=== PATIENT | female | born 1995 | race Caucasian/White ===

== ENCOUNTER → 2017-08-16 18:11 | Outpatient (CLI) | payer OTHER, SELFPAY ==
[2017-08-16 18:18] LABS: Adenovirus F 40/41, stool Not Detected (NotDetected); Astrovirus Not Detected (NotDetected); Campylobacter Not Detected (NotDetected); Clostridium Difficile A/B, PCR Not Detected (NotDetected); Cryptosporidium Not Detected (NotDetected); Cyclospora Cayetanesis Not Detected (NotDetected); Entamoeba histolytica Not Detected (NotDetected); Enteroaggregative E coli Not Detected (NotDetected); Enteropathogenic E coli Not Detected (NotDetected); Enterotoxigenic E coli Not Detected (NotDetected); Giardia lamblia Not Detected (NotDetected); Norovirus Not Detected (NotDetected); Plesimonas Shigalloides, PCR Not Detected (NotDetected); Rotavirus A Not Detected (NotDetected); Salmonella, PCR Not Detected (NotDetected); Sapovirus Not Detected (NotDetected); Shiga-like toxin E coli Not Detected (NotDetected); Shigella Enterovasive E coli Not Detected (NotDetected); Vibrio Cholerae Not Detected (NotDetected); Vibrio, PCR Not Detected (NotDetected); Yersinia Entercolitica, PCR Not Detected (NotDetected)
== END ==
PROVIDERS: Visit Provider Physician Assistant
DX: R19.7 Diarrhea, unspecified (principal)
CPT/HCPCS: 87507

== ENCOUNTER 2020-05-25 10:17 | Emergency (ER) | payer OTHER, SELFPAY ==
[2020-05-25 10:25] VITALS: BP 113/74; PULSE 69; RESP 20; TEMP 36.2; O2SAT 97; BMI 24.2
--- NOTE | 2020-05-25 10:57 | HMH.EDUTC ---
[facility] [place] Clinical Impression: Exposure to COVID-19 virus, Viral syndrome Disposition: Home, Self-Care Condition on Discharge: Good Instructions: DI for COVID-19 (Suspected or Confirmed ), Preventing the Spread of Coronavirus Discharge Instructions Additional Instructions: Drink plenty of fluids. Take tylenol for pain or fever. Return if you begin to have difficulty breathing. Follow up with your regular doctor. GO TO THE ER FOR ANY WORSENING SYMPTOMS Referrals: Heath Yu MD [Primary Care Provider] - Time of Disposition: 10:59 Medical Decision Making - Medical Records Medical records reviewed: No: I reviewed the patient's medical records. - Tate Inquiry Pt receiving controlled substance: No Vital Signs: 05/25/20 10:25 05/25/20 11:00 Temperature 97.2 F L 97.2 F L Temperature Source Temporal Artery Scan Pulse Rate 69 Pulse Rate [Right Brachial] 69 Respiratory Rate 20 20 Blood Pressure 113/74 Blood Pressure [Right Arm] 113/74 Blood Pressure Mean [Right Arm] 87 Blood Pressure Source [Right Arm] Automatic Cuff Blood Pressure Position [Right Arm] Sitting 02 Sat by Pulse Oximetry 97 Oxygen Delivery Method Room Air Orders (Tests/Meds): ORDERS Category Date Time Status Covid-19 Nasal PCR Sendout P&C Routine Lab 05/25/20 10:20 [place]dered [facility] [place] - General Stated complaint: Covid Test Time Seen by Provider: 05/25/20 10:58 Mode of Arrival: Ambulatory Source of Information: Patient Limitations: No Limitations Description of Symptoms (Recalled from Triage Doc. by RN): COVID TEST D/T EXPOSURE. C/O HEADACHE AND NASAL CONGESTION HEENT Symptoms (Recalled from RN notes): No Resp Symptoms (Recalled from RN notes): No Skin Symptoms (Recalled from RN notes): No MS Symptoms (Recalled from RN notes): No Functional Status (Recalled from RN notes): WNL - History of Present Illness Provider Complaint: She states that she was exposed to covid-19 last week. She states that over the past 2 days she has had sinus congestion and a headache. - Related Data Allergies Allergy/AdvReac Type Severity Reaction Status Date / Time No Known Allergies Allergy Verified 05/25/20 10:44 - Worker's Comp Is this a Worker's Comp case?: No [facility] History - Hepatitis A Screen Drug use history?: No High risk sexual behaviors?: No History of sexually transmitted infection?: No Currently employed?: No Childcare worker?: No Do you have indoor plumbing?: Yes Do you have electricity?: Yes Attestation statement:: This patient has been screened for Hepatitis A risk factors. I have reviewed the patient's past medical history: Yes Laterality Cases: Bilateral: Myringotomy (Ear Tubes) - Social History Alcohol Intake: never Occupational Status: other ROS Obtained: Yes All systems reviewed & no additional complaints - Constitutional Constitutional: Reports system reviewed and no additional complaints, except as docu - Eyes Eyes: Reports system reviewed and no additional complaints, except as docu - ENT Ears, Nose, Mouth, and Throat: Reports as per HPI - Cardiovascular Cardiovascular: Reports system reviewed and no additional complaints, except as docu - Respiratory Respiratory: Reports system reviewed and no additional complaints, except as docu, Denies dyspnea, Denies stridor, Denies wheezing Physical Exam - General General appearance: alert, in no apparent distress - Head Head exam: atraumatic, normocephalic, normal inspection - Eye Eye exam: Present: normal appearance, PERRL, EOMI - ENT ENT exam: Present: normal exam, normal oropharynx, mucous membranes moist, TM's normal bilaterally, normal external ear exam - Neck Neck exam: Present: normal inspection, full ROM, trachea midline. Absent: meningismus, lymphadenopathy - Chest Chest inspection: Present: normal inspection, symmetric chest wall rise. Absent: tenderness - Respiratory Respiratory exam: Pres
[2020-05-25 11:00] VITALS: BP 113/74; PULSE 69; RESP 20; TEMP 36.2; O2SAT 97
[2020-05-26 11:43] LABS: Covid-19 Nasal PCR Sendout P&C Negative
== END 2020-05-25 11:05 | disposition home or self-care (01) ==
PROVIDERS: Emergency Provider Nurse Practitioner Family; PCP Family Medicine
DX: Z20.822 Contact with and (suspected) exposure to COVID-19 (principal); B34.9 Viral infection, unspecified
CPT/HCPCS: 99202; G0463; U0004

== ENCOUNTER 2021-10-27 11:42 | Emergency (ER) | payer BC, SELFPAY ==
[2021-10-27 12:15] VITALS: BP 111/73; PULSE 54; RESP 16; TEMP 37; O2SAT 100; BMI 22.6
--- NOTE | 2021-10-27 12:57 | HMH.EDUTC ---
[facility] [place] Disposition Clinical Impression: Exposure to COVID-19 virus Disposition: Home, Self-Care Condition on Discharge: Good Instructions: DI for COVID-19 (Suspected or Confirmed ), Preventing the Spread of Coronavirus Discharge Instructions Additional Instructions: *Monitor Temp, Over the counter Motrin or Tylenol as directed/as needed Tylenol every 4 hours and Motrin every 6 hours (as long as your family doctor has told you that you can take it) for fever or pain. and straight to ER if unable to lower temp less than 101.0 after medication given Follow up IMMEDIATELY for new or worsening symptoms or no Noticeable improvement over the next 48-72 hours. 911 for difficulty breathing or swallowing You were tested for today for COVID19 your test result should be back in the next 24-48 hours, you may Check your results on the [facility] [employer] health portal Make sure to take your Vitamins Vit. C Vit D and Zinc if you can take them Referrals: Heath Yu MD [Primary Care Provider] - As needed Forms: Work/School Release Medical Decision Making - Tate Inquiry Pt receiving controlled substance: No Tate was queried for this patient: No Vital Signs: 10/27/21 12:15 Temperature 98.6 F Temperature Source Oral Pulse Rate [Right Brachial] 54 L Respiratory Rate 16 Blood Pressure [Right Arm] 111/73 Blood Pressure Mean [Right Arm] 85 Blood Pressure Source [Right Arm] Automatic Cuff Blood Pressure Position [Right Arm] Sitting 02 Sat by Pulse Oximetry 100 Oxygen Delivery Method Room Air [facility] [place] HPI - General Stated complaint: covid exposure, sore throat Time Seen by Provider: 10/27/21 12:57 Mode of Arrival: Ambulatory Source of Information: Patient Limitations: No Limitations Description of Symptoms (Recalled from Triage Doc. by RN): COVID TEST D/T EXPOSURE HEENT Symptoms (Recalled from RN notes): No Resp Symptoms (Recalled from RN notes): No Skin Symptoms (Recalled from RN notes): No MS Symptoms (Recalled from RN notes): No Functional Status (Recalled from RN notes): WNL - History of Present Illness Provider Complaint: Patient states that she was recently exposed to someone that is positive for COVID States that she has been feeling fatigued, body aches, chills and scratchy thorat so she came in to get checked for COVID - Related Data Allergies Allergy/AdvReac Type Severity Reaction Status Date / Time No Known Allergies Allergy Verified 05/25/20 10:44 - Worker's Comp Is this a Worker's Comp case?: No H History - Hepatitis A Screen Attestation statement:: This patient has been screened for Hepatitis A risk factors. I have reviewed the patient's past medical history: Yes Laterality Cases: Bilateral: Myringotomy (Ear Tubes) - Social History Alcohol Intake: never Occupational Status: other ROS Obtained: Yes All systems reviewed & no additional complaints, Yes Systems reviewed as appropriate & no additional complaints - Constitutional Constitutional: Reports system reviewed and no additional complaints, except as docu, Reports body ache, Reports chills, Reports fatigue - ENT Ears, Nose, Mouth, and Throat: Reports system reviewed and no additional complaints, except as docu, Reports sore throat - Cardiovascular Cardiovascular: Reports system reviewed and no additional complaints, except as docu - Respiratory Respiratory: Reports system reviewed and no additional complaints, except as docu - Gastrointestinal Gastrointestingal: Reports: system reviewed and no additional complaints, except as docu Physical Exam - General General appearance: alert, in no apparent distress - Expanded ENT Exam Nose exam: Absent: sinus tenderness Throat exam: Present: other (Mild pharyngeal erythema noted) - Respiratory Respiratory exam: Present: normal lung sounds bilaterally. Absent: respiratory distress - Cardiovascular Cardiovascular exam: Present: regular rate, normal rhythm. Absent: JVD - Abdom
[2021-10-27 13:05] VITALS: BP 111/73; PULSE 54; RESP 16; TEMP 37; O2SAT 100
== END 2021-10-27 13:10 | disposition home or self-care (01) ==
PROVIDERS: Emergency Provider Nurse Practitioner; PCP Family Medicine
DX: Z20.822 Contact with and (suspected) exposure to COVID-19 (principal); J02.9 Acute pharyngitis, unspecified
CPT/HCPCS: 99212; C9803; G0463; U0003; U0005

== ENCOUNTER → 2022-04-19 11:36 | Outpatient (CLI) | payer BC, SELFPAY ==
--- NOTE | 2022-04-19 11:43 | US_ITS ---
FINAL REPORT CLINICAL HISTORY: ABDOMINAL PAIN FINDINGS: Transvaginal sonographic images of the pelvis were obtained. The uterus measures 7.3 x 5.6 x 4.2 cm. The endometrium measures 9 mm, which is within normal limits. No uterine mass is identified. The right ovary measures 3.5 cm in length and left ovary measures 4.4 cm in length. Normal blood flow seen to the ovaries. Small follicles/cysts are present. No dominant mass or cyst is seen. There is a small amount of 3 fluid which may be physiological or reactive. IMPRESSION: Small follicles/cysts in the ovaries. Small amount of free fluid, physiologic or reactive. Reviewed, Interpreted and Dictated by Salvador Yeager III, MD Transcribed by Daysi Stewart Authenticated and [facility]
== END ==
PROVIDERS: PCP Family Medicine; Visit Provider Family Medicine
DX: R10.32 Left lower quadrant pain (principal)
CPT/HCPCS: 76830

== ENCOUNTER 2022-04-27 17:41 | Emergency (ER) | payer BC, SELFPAY ==
[2022-04-27 18:10] VITALS: BP 118/70; PULSE 62; RESP 18; TEMP 37.1; O2SAT 98; BMI 23.3
[2022-04-27 18:21] LABS: UTC Strep Screen (Rapid) Negative (Negative)
--- NOTE | 2022-04-27 18:55 | EXP.UTC ---
Discharge Plan Disposition Patient Disposition: Home, Self-Care Condition: Good Prescriptions Prescriptions: New azithromycin [Zithromax Z-Jerry] 250 mg tablet See Rx Instructions .ROUTE .COMPLEX 5 Days Qty: 6 0RF Rx Instructions: For 250 mg dose pack: take 500 mg today (day 1), then 250 mg for 4 days (days 2-5) Referrals Follow up/Referrals: Heath Yu MD [Primary Care Provider] - See instructions Activity Restrictions/Add. Instructions Additional Instructions/Restrictions: *Monitor Temp, Over the counter Motrin or Tylenol as directed/as needed Tylenol every 4 hours and Motrin every 6 hours (as long as your family doctor has told you that you can take it) for fever or pain. and straight to ER if unable to lower temp less than 101.0 after medication given *Warm salt water gargles may help to soothe the throat *Throat Lozenges? *Warm fluids like tea with honey may help to soothe the throat? *Sleep elevated *Humidifier/Vaporizer Your throat swab was sent for culture. Those results are typically sent to your primary care. Be sure to follow up in 2-3 days with your family doctor/primary care physician if no improvement so they can review those result and treat if necessary. If you don?t have a primary care doctor, I recommend you get one but in the mean time, you will have to return to a walk in clinic Follow up IMMEDIATELY for new or worsening symptoms or no Noticeable improvement over the next 48-72 hours. 911 for difficulty breathing or swallowing Clinical Impressions Clinical Impression: Pharyngitis Instructions Patient Instructions: DI for Pharyngitis/Tonsillopharyngitis -- Adult Discharge ED Provider: Tamara Muñiz [facility] General Stated complaint: sore throat Mode of Arrival: Ambulatory Source of Information: Patient Limitations: No Limitations Time Seen by Provider: 04/27/22 18:55 Description of Symptoms (Recalled from Triage Doc. by RN): PATIENT C/O SORE THROAT, HEADACHE AND FATIGUE. REPORTS RECENT EXPOSURE TO STREP HEENT Symptoms (Recalled from RN notes): Yes Resp Symptoms (Recalled from RN notes): No Skin Symptoms (Recalled from RN notes): No MS Symptoms (Recalled from RN notes): No Functional Status (Recalled from RN notes): WNL History of Present Illness Provider Complaint: Patient state that she was recently around her mother that has strep throat States that she is having sore throat headache and chills like she gets at times with strep throat so today when her throat was worse she came in Related Data Previous Rx's Medication Instructions Recorded azithromycin 250 mg tablet See Rx Instructions PO .COMPLEX 5 04/27/22 (Zithromax Z-Jerry) days #6 tabs Allergies Allergy/AdvReac Type Severity Reaction Status Date / Time No Known Allergies Allergy Verified 05/25/20 10:44 Worker's Comp Is this a Worker's Comp case?: No [facility] Disclaimer: The information contained in this section may have been updated after the patient was seen, as this information can be updated by other users. Medical History (Updated 04/27/22 @ 18:59 by Tamara Muñiz APRN) Depression Urinary tract infection Surgical History (Updated 04/27/22 @ 18:28 by Cailin Frost RN) History of section History of tympanostomy tube placement Social History (Updated 04/27/22 @ 18:28 by Cailin Frost RN) Smoking Status: Unknown if ever smoked alcohol intake: never current occupational status: other Travel in the last 8 weeks: None ROS Obtained: Yes All systems reviewed & no additional complaints except as documented and Yes Systems reviewed as appropriate & no additional complaints except as documented Constitutional Constitutional: Reports system reviewed and no additional complaints, except as documented, Reports as per HPI, Reports chills and Reports headache(s) ENT Ears, Nose, Mouth, and Throat: Reports system reviewed and no additional compla
[2022-04-27 19:07] VITALS: BP 118/70; PULSE 62; RESP 18; TEMP 37.1; O2SAT 98
== END 2022-04-27 19:44 | disposition home or self-care (01) ==
PROVIDERS: Emergency Provider Nurse Practitioner; PCP Family Medicine
DX: J02.9 Acute pharyngitis, unspecified (principal)
CPT/HCPCS: 87880; 99212; G0463

== ENCOUNTER 2022-05-02 22:07 | Emergency (ER) | payer BC, SELFPAY ==
[2022-05-02 22:31] VITALS: BMI 24.3
--- NOTE | 2022-05-02 22:37 | XR_ITS ---
PROCEDURE INFORMATION: Exam: XR Chest Exam date and time: 05/02/2022 10:39 PM Age: 27 years old Clinical indication: Shortness of breath; Patient HX: PT states she experiences intermittent SOA. However, today was worse than usual; Additional info: SOB TECHNIQUE: Imaging protocol: Radiologic exam of the chest. Views: 2 views. COMPARISON: No relevant prior studies available. FINDINGS: Lungs: Unremarkable. No consolidation. Pleural spaces: Unremarkable. No pleural effusion. No pneumothorax. Heart/Mediastinum: Unremarkable. No cardiomegaly. Bones/joints: Unremarkable. IMPRESSION: No acute findings.
--- NOTE | 2022-05-02 22:37 | ECG_ITS ---
APPROVED REPORT Exam: Resting ECG HR:46 bpm ECG Measurements Heart Rate 46 AXES FL 186 P 70 QRSd 88 QRS 76 QT 447 T 65 QTc 408 Conclusion SINUS BRADYCARDIA BORDERLINE ECG UNCONFIRMED REPORT Electronically signed by : Mulugeta Cintron MD 05/04/2022 08:13:25
[2022-05-02 22:42] LABS: Basophils # 0.1 K/mm3 (0-0.2); Basophils % 1.4 % (0.1-2.0); Eosinophils # 0.1 K/mm3 (0.0-0.4); Eosinophils % 2.1 % (0.1-12.0); Hematocrit 39.7 % (37.0-47.0); Hemoglobin 13.4 g/dL (12.2-16.2); Lymphocytes # 3.4 K/mm3 (0.7-4.5); Lymphocytes % 52.7 % (10-50); Mean Corpuscular HGB Conc 33.8 g/dL (31.8-35.4); Mean Corpuscular Hemoglobin 29.5 pg (27.0-31.2); Mean Corpuscular Volume 87.2 fl (81-99); Mean Platelet Volume 7.6 fl (7.4-10.4); Monocytes # 0.3 K/mm3 (0.1-1.0); Monocytes % 4.9 % (1.7-9.3); Neutrophils # 2.5 K/mm3 (1.8-7.8); Neutrophils % 39.1 % (37.0-80.0); Platelet Count 280 K/mm3 (142-424); Red Blood Count 4.56 M/mm3 (4.20-5.40); Red Cell Distribution Width 13.1 % (11.5-17.5); White Blood Count 6.5 K/mm3 (4.8-10.8)
[2022-05-02 22:50] LABS: Alanine Aminotransferase 14 U/L (12-78); Albumin Level 4.6 g/dl (3.5-5.0); Albumin/Globulin Ratio 1.7 (1.1-1.8); Alkaline Phosphatase 44 U/L (38-126); Anion Gap 13.5 mEq/L (5-15); Aspartate Amino Transferase 28 U/L (14-36); Bilirubin,Total 0.9 mg/dl (0.2-1.3); Blood Urea Nitrogen 18 mg/dl (7-17); Calcium 8.9 mg/dl (8.4-10.2); Carbon Dioxide 28 mmol/L (22.0-30.0); Chloride 100 mmol/L (98-107); Creatinine Clearance Estimated 103 mL/min (50-200); Estimated Glomerular Filt Rate 75 ml/min (>60); GFR (African American) 90 ML/MIN (>60); Globulin 2.7 g/dL (1.3-3.2); Glucose 90 mg/dl (74-100); Potassium 3.5 mmoL/L (3.5-5.1); Sodium 138 mmol/L (136-145); Total Protein,Serum 7.3 g/dl (6.3-8.2)
[2022-05-02 22:52] LABS: MANUAL DIFFERENTIAL MANUAL DIFFERENTIAL (MANUAL DIFF)
[2022-05-02 23:00] VITALS: BP 115/77; PULSE 41; RESP 9; O2SAT 100
[2022-05-02 23:04] LABS: Troponin I < 0.01 ng/ml (0.00-0.034)
[2022-05-02 23:05] VITALS: BP 132/95; PULSE 43; RESP 18; TEMP 36.7; O2SAT 100; BMI 24.3
--- NOTE | 2022-05-02 23:24 | HMH.EDSOB ---
Discharge Plan Disposition Patient Disposition: Home, Self-Care Chief Complaint: Shortness of Breath/Dyspnea Prescriptions Prescriptions: No Action azithromycin [Zithromax Z-Jerry] 250 mg tablet See Rx Instructions .ROUTE .COMPLEX Rx Instructions: For 250 mg dose pack: take 500 mg today (day 1), then 250 mg for 4 days (days 2-5) Referrals Follow up/Referrals: Heath Yu MD [Primary Care Provider] - See instructions Clinical Impressions Clinical Impression: Acute dyspnea, Bradycardia Instructions Patient Instructions: DI for Shortness of Breath Discharge ED Provider: Zuhair Jama Resp/SOB HPI General Chief Complaint: Shortness of Breath/Dyspnea Stated Complaint: SOB,Little chest pain possible reaction to Medicat Time Seen by Provider: 05/02/22 23:26 Mode of Arrival: Ambulatory Source of Information: Patient and Medical Record Limitations: No Limitations Description of Symptoms (Recalled from ER Triage Doc. by RN): Pt states that she was diagnosed with Strep throat 5 days ago and was prescribed a zpack. Pt reports a history of chronic bradycardia. Pt states that after exercising this morning she noticed heart palpatations and has been experiencing shortness of breath. She is fearful that this may be caused from the zpack. History of Present Illness just finished z jerry and has hx of bradycardia and has noted some sob and palpitation today - MD Complaint: shortness of breath Onset (ago): hour(s) Severity: moderate Consistency/Duration: intermittent Associated symptoms: denies other symptoms Related Data Home oxygen amount: none Home Medications Medication Instructions Recorded Confirmed azithromycin 250 mg tablet See Rx Instructions .Route 05/02/22 05/02/22 (Zithromax Z-Jerry) .COMPLEX strep throat Allergies Allergy/AdvReac Type Severity Reaction Status Date / Time No Known Allergies Allergy Verified 05/25/20 10:44 [facility] Disclaimer: The information contained in this section may have been updated after the patient was seen, as this information can be updated by other users. Medical History (Updated 05/02/22 @ 23:36 by Zuhair Jama MD) Depression Urinary tract infection Surgical History (Updated 04/27/22 @ 18:28 by Cailin Frost RN) History of section History of tympanostomy tube placement Social History (Updated 04/27/22 @ 18:28 by Cailin Frost RN) Smoking Status: Never smoker alcohol intake: never current occupational status: other Travel in the last 8 weeks: None ROS Obtained: Yes All systems reviewed & no additional complaints except as documented Physical Exam General General appearance: alert Head Head exam: atraumatic Eye Eye exam: Present PERRL and EOMI ENT ENT exam: Present mucous membranes moist Neck Neck exam: Present trachea midline Respiratory Respiratory exam: Present normal lung sounds bilaterally; Absent respiratory distress Cardiovascular Cardiovascular exam: Present bradycardia; Absent systolic murmur or clicks Abdominal Exam Abdominal exam: Present soft Extremities Exam Extremities exam: Present full ROM Neurological Exam Neurological exam: Present alert, oriented X3 and CN II-XII intact Psychiatric Psychiatric exam: Present normal affect Skin Skin exam: Absent rash Medical Decision Making Medical Records Medical records reviewed: Yes I reviewed the patient's medical records. Ttae Inquiry Pt receiving controlled substance: No Vital Signs: 05/02/22 23:05 05/02/22 23:00 Temperature 98.1 F Temperature Source Oral Pulse Rate 41 L Pulse Rate [Apical] 43 L Respiratory Rate 18 9 L Blood Pressure 115/77 Blood Pressure [Right Arm] 132/95 H Blood Pressure Mean [Right Arm] 107 Blood Pressure Source [Right Arm] Automatic Cuff Blood Pressure Position [Right Arm] Supine 02 Sat by Pulse Oximetry 100 100 Oxygen Delivery Method Room Air Lab Data Lab results reviewed: Yes I
[2022-05-02 23:30] VITALS: BP 124/83; PULSE 45; RESP 19; O2SAT 99
[2022-05-02 23:34] LABS: Eosinophils % 1 % (0-3); Lymphocytes % 65 % (10-50); Monocytes % 3 % (2-9); Neutrophils % 31 % (42-76); Platelet Estimate Normal; RBC Morphology Normal; Total Cells Counted 100
[2022-05-02 23:37] VITALS: BP 130/92; PULSE 43; RESP 18; TEMP 36.6; O2SAT 98
[2022-05-02 23:49] LABS: T4 (Thyroxine) 8.8 ug/dl (5.53-11.0)
[2022-05-03 00:03] LABS: Thyroid Stimulating Hormone 4.06 uIU/mL (0.465-4.68)
== END 2022-05-02 23:48 | disposition home or self-care (01) ==
PROVIDERS: Emergency Provider Emergency Medicine; PCP Family Medicine
DX: R00.1 Bradycardia, unspecified (principal); R06.00 Dyspnea, unspecified; R06.02 Shortness of breath; R00.2 Palpitations; F32.A Depression, unspecified; Z87.440 Personal history of urinary (tract) infections
CPT/HCPCS: 71046; 80053; 84436; 84443; 84484; 85007; 85025; 93005; 99285

== ENCOUNTER → 2022-05-12 11:48 | Outpatient (CLI) | payer BC, SELFPAY ==
--- NOTE | 2022-05-12 | CA_ITS ---
APPROVED REPORT EXAM: Comprehensive 2D, Doppler, and color-flow Echocardiogram [employer] Information Clerk: Chantal Lucas CRT Ht: 5 ft 7 in Wt: 153lbs BSA: 1.80 BP: 128/88 mmHg Indications: Chest Pain, Shortness of Breath, Palpitations, bradycardia 2D Dimensions LVOT 2.10 cm (M/F) 1.5-2.5 LA Volume 40.70 mL LA Volume Index 22.00 mL/m2 (M/F) 16-34 M-Mode Dimensions RVDd 2.76 cm (0.9-2.6) LA Diam 3.58 cm (1.9-4.0) LVDd 4.69 cm (3.5-5.7) Ao Diam 3.34 cm (2.0-3.7) LVDs 3.32 cm (3.5-5.7) IVSd 0.80 cm (0.6-1.1) PWd 0.64 cm (0.6-1.1) EF (Teich) 56.00% FS 29.20% EDV (Teich) 101.90 mL TAPSE 2.44 (<1.7) ESV (Teich) 44.80 mL LV Diastology E Decel Time 323.00 (160-240 msec) E/A Ratio 2.40 MED E' 13.50 (< 7 cm/sec) MED A' 7.40 cm/s E'/MED E' Ratio 9.36 (>14) LAT E' 17.50 (<10 cm/sec) LAT A' 10.80 cm/s E/LAT E' Ratio 7.22 (>14) Aortic Valve AO Peak GR. 10.70 mmHg Mitral Valve MV A Velocity 53.00 (40-130 cm/s) E/A Ratio 2.40 MV Decel. Time 323.00 (160-240 ms) Pulmonary Valve PV Peak Velocity 183.00 (50-150 cm/s) Tricuspid Valve TR P. Velocity 232.00 cm/s RAP Estimate 10.00 mmHg RVSP 31.50 mmHg Left Ventricle Left atrium is normal size, left ventricle is normal size preserved left ventricular systolic function, estimated ejection fraction 55% with no regional wall motion abnormality, diastolic parameters are within normal range. Right Ventricle Right atrium and right ventricle are normal size and contractility. Aortic Valve Aortic valve is grossly normal there is no aortic stenosis aortic insufficiency. Mitral Valve Mitral valve grossly normal, there is trace mitral regurgitation. Tricuspid Valve Tricuspid valve grossly normal, there is trace tricuspid regurgitation, tricuspid regurgitation jet velocity is inadequate for calculation of the right ventricular systolic pressure. Pulmonic Valve Pulmonic valve is poorly visualized. Great Vessels Aortic root is normal size. Inferior vena cava is normal size with normal inspiratory collapse. Pericardium No significant pericardial effusion noted. Conclusion 1. Normal left ventricular size preserved left ventricular systolic function, estimated ejection fraction 55% with no regional wall motion abnormality, diastolic parameters are within normal range. 2. Trace mitral and tricuspid regurgitation. 3. No significant pericardial effusion noted. 4. Inferior vena cava is normal size with normal inspiratory collapse. Electronically signed by : Walker Calvillo MD 05/12/2022 15:01:50
== END ==
PROVIDERS: PCP Family Medicine; Visit Provider Nurse Practitioner Family
DX: R00.1 Bradycardia, unspecified (principal)
CPT/HCPCS: 93270; 93306

== ENCOUNTER → 2022-11-14 08:30 | Outpatient (CLI) | payer BC, SELFPAY ==
[2022-11-14] VITALS (10 sets, daily range): BP systolic 97–127; BP diastolic 56–76; PULSE 48–58; RESP 18; TEMP 36.2; O2SAT 96–100; BMI 24.2
--- NOTE | 2022-11-14 08:35 | FL_ITS ---
FINAL REPORT CLINICAL HISTORY: vision changes new daily headaches .23 fluoro time FINDINGS: LUMBAR PUNCTURE AND FLUOROSCOPY HISTORY: Daily headaches with visual disturbances ATTENDING PHYSICIAN: Dr. Landaverde PHYSICIAN PROCUREMENT INTERNSHIP: George Fragoso PA-C PROCEDURE: After informed consent was obtained and timeout procedure performed, the patient was placed in the prone position in the fluoroscopic suite. The L3-L4 level of the lumbar spine was localized under fluoroscopic guidance and marked on the skin appropriately. The patient was then prepped and draped in the usual sterile fashion and the skin was anesthetized with 1% Lidocaine. A lumbar puncture was then performed under direct fluoroscopic guidance at the L3-L4 level using a 20-gauge 3 1/2'' needle. The patient was subsequently rolled into the left lateral decubitus position and opening pressure was measured at 11 cm of water. Approximately 12 ml of clear cerebrospinal fluid was removed and sent to the laboratory for studies. The patient tolerated the procedure well and there were no immediate complications. Fluoroscopy time: 0.23 minutes. Single radiograph was obtained. IMPRESSION: Technically successful lumbar puncture as above. Films reviewed , interpreted and dictated by Dr. Kitty Landaverde. Transcribed by George Fragoso PA-C. Reviewed, Interpreted and Dictated by Kitty Landaverde MD Transcribed by PIPE Shanks Authenticated and [facility]
[2022-11-15 09:18] LABS: Glucose,CSF 48 mg/dl (40-70)
[2022-11-15 09:38] LABS: Appearance,CSF Clear (Clear); Red Blood Cell,CSF 1 cells/uL (0); Volume,CSF 12.5 mL; White Blood Cell,CSF 2 cells/uL (0-5)
[2022-11-15 10:17] LABS: Mononuclear WBCs,CSF 0 %; Polynuclear WBCs,CSF 1 %
== END | disposition home or self-care (01) ==
PROVIDERS: PCP Family Medicine; Visit Provider Family Medicine
DX: G44.52 New daily persistent headache (NDPH) (principal); H53.9 Unspecified visual disturbance
CPT/HCPCS: 62270; 82945; 84155; 87070; 87205; 89051

== ENCOUNTER 2023-05-05 10:40 | Emergency (ER) | payer BC, SELFPAY ==
[2023-05-05 11:05] VITALS: BP 114/68; PULSE 56; RESP 20; TEMP 36.9; O2SAT 100; BMI 22.6
--- NOTE | 2023-05-05 11:18 | EXP.UTC ---
Discharge Plan Disposition Patient Disposition: Home, Self-Care Condition: Good Prescriptions Prescriptions: New cefdinir 300 mg capsule 300 mg PO BID Qty: 20 0RF Referrals Follow up/Referrals: Cherise Kaye PA [Primary Care Provider] - See instructions Activity Restrictions/Add. Instructions Additional Instructions/Restrictions: *Monitor Temp, Over the counter Motrin or Tylenol as directed/as needed Tylenol every 4 hours and Motrin every 6 hours (as long as your family doctor has told you that you can take it) for fever or pain. and straight to ER if unable to lower temp less than 101.0 after medication given *Warm salt water gargles may help to soothe the throat *Throat Lozenges? *Warm fluids like tea with honey may help to soothe the throat? *Sleep elevated *Humidifier/Vaporizer Your throat swab was sent for culture. Those results are typically sent to your primary care. Be sure to follow up in 2-3 days with your family doctor/primary care physician if no improvement so they can review those result and treat if necessary. If you don?t have a primary care doctor, I recommend you get one but in the mean time, you will have to return to a walk in clinic Follow up IMMEDIATELY for new or worsening symptoms or no Noticeable improvement over the next 48-72 hours. 911 for difficulty breathing or swallowing Clinical Impressions Clinical Impression: Pharyngitis Qualifiers: Pharyngitis/tonsillitis etiology: unspecified etiology Qualified Code(s): J02.9 - Acute pharyngitis, unspecified Instructions Patient Instructions: Cough, Sore Throat, Cefdinir Discharge ED Provider: Tamara Muñiz [facility] General Stated complaint: sore throat, cough, body aches Mode of Arrival: Ambulatory Source of Information: Patient Limitations: No Limitations Time Seen by Provider: 05/05/23 11:18 Description of Symptoms (Recalled from Triage Doc. by RN): PATIENT C/O COUGH WITH MUCOUS, SORE THROAT, AND SWOLLEN LYMPH NODES X 3 WEEKS HEENT Symptoms (Recalled from RN notes): Yes Resp Symptoms (Recalled from RN notes): Yes Skin Symptoms (Recalled from RN notes): No MS Symptoms (Recalled from RN notes): No Functional Status (Recalled from RN notes): WNL History of Present Illness Provider Complaint: Patient states that she has had a cough on and off for about 3 weeks that is productive at times, also had ear pain and pressure on and off for the last few days her throat has been hurting pretty bad and today her throat was still hurting and felt like her lymph nodes was swollen Related Data Previous Rx's Medication Instructions Recorded cefdinir 300 mg capsule 300 mg PO BID #20 caps 05/05/23 Allergies Allergy/AdvReac Type Severity Reaction Status Date / Time azithromycin Allergy Verified 05/05/23 11:18 latex AdvReac Mild Verified 11/14/22 08:57 Worker's Comp Is this a Worker's Comp case?: No [facility] Disclaimer: The information contained in this section may have been updated after the patient was seen, as this information can be updated by other users. Medical History (Updated 05/05/23 @ 11:32 by Tamara Muñiz APRN) Bradycardia Chest pain Depression Dizziness Dyspnea Palpitations Urinary tract infection Surgical History History of section History of tympanostomy tube placement Social History Smoking Status: Never smoker alcohol intake: never current occupational status: other Travel in the last 8 weeks: None ROS Obtained: Yes All systems reviewed & no additional complaints except as documented and Yes Systems reviewed as appropriate & no additional complaints except as documented Constitutional Constitutional: Reports system reviewed and no additional complaints, except as documented and Reports as per HPI ENT Ears, Nose, Mouth, and Throat: Reports system reviewed and no additional complaints, except as documented, Reports as per HPI, Reports otalgia (on and off) and Reports sore throat Cardiovascular Cardiovascular: Reports system reviewed and no additional complaints, except as documented and Reports as per HPI Respiratory Respiratory: Reports system reviewed and no additional complaints, except as documented, Reports as per HPI, Denies shortness of breath, Reports chest congestion and Reports cough Physical Exam General General appearance: alert and in no apparent distress ENT ENT exam: Present mucous membranes moist Expanded ENT Exam TM/Canal exam: Bilateral TM: bulging (mild redness on left) Throat exam: Present tonsillar erythema (patchy like area noted) Respiratory Respiratory exam: Present normal lung sounds bilaterally; Absent respiratory distress or wheezes Cardiovascular Cardiovascular exam: Present regular rate, normal rhythm and normal heart sounds Abdominal Exam Abdominal exam: Present soft and normal bowel sounds; Absent distention or tenderness Neurological Exam Neurological exam: Present alert, oriented X3 and normal gait Medical Decision Making Tate Inquiry Pt receiving controlled substance: No Tate was queried for this patient: No Vital Signs: 05/05/23 11:05 Temperature 98.5 F Temperature Source Oral Pulse Rate [Left Brachial] 56 L Respiratory Rate 20 Blood Pressure [Left Arm] 114/68 Blood Pressure Mean [Left Arm] 83 Blood Pressure Source [Left Arm] Automatic Cuff Blood Pressure Position [Left Arm] Sitting 02 Sat by Pulse Oximetry 100 Oxygen Delivery Method Room Air Lab Data Lab results reviewed: Yes I reviewed the patient's lab results. Medical Decision Narrative: Patient rapid strep test negative however gina noted, PND and patchy like area noted therefore will cover for strep throat medication discussed with pharmacy
[2023-05-05 11:20] VITALS: BP 114/68; PULSE 56; RESP 20; TEMP 36.9; O2SAT 100
[2023-05-05 11:23] LABS: UTC Strep Screen (Rapid) Negative (Negative)
== END 2023-05-05 11:42 | disposition home or self-care (01) ==
PROVIDERS: Emergency Provider Nurse Practitioner; PCP Physician Assistant
DX: J02.9 Acute pharyngitis, unspecified (principal); R05.8 Other specified cough; H92.03 Otalgia, bilateral; M79.18 Myalgia, other site
CPT/HCPCS: 87880; 99212; 99214; G0463

== ENCOUNTER 2023-09-21 20:05 | Emergency (ER) | payer BC, SELFPAY ==
[2023-09-21 20:06] VITALS: BP 136/91; PULSE 52; RESP 16; TEMP 36.7; O2SAT 100; BMI 23.3
--- NOTE | 2023-09-21 20:13 | ECG_ITS ---
APPROVED REPORT Exam: Resting ECG HR:47 bpm ECG Measurements Heart Rate 47 AXES VA 170 P 53 QRSd 81 QRS 44 QT 423 T 51 QTc 388 Conclusion SINUS BRADYCARDIA Electronically signed by : LAILA HENNESSY, 09/22/2023 01:26:06
[2023-09-21 21:03] LABS: Basophils # 0.1 K/mm3 (0-0.2); Basophils % 0.9 % (0.1-2.0); Eosinophils # 0.1 K/mm3 (0.0-0.4); Eosinophils % 1.4 % (0.1-12.0); Hematocrit 41.6 % (37.0-47.0); Hemoglobin 13.7 g/dL (12.2-16.2); Lymphocytes # 2.7 K/mm3 (0.7-4.5); Lymphocytes % 36.9 % (10-50); Mean Corpuscular Hemoglobin 29.8 pg (27.0-31.2); Mean Corpuscular Volume 90.3 fl (81-99); Mean Platelet Volume 7.8 fl (7.4-10.4); Monocytes # 0.3 K/mm3 (0.1-1.0); Monocytes % 4.4 % (1.7-9.3); Neutrophils # 4.1 K/mm3 (1.8-7.8); Neutrophils % 56.4 % (37.0-80.0); Platelet Count 238 K/mm3 (142-424); Red Blood Count 4.61 M/mm3 (4.20-5.40); Red Cell Distribution Width 14.4 % (11.5-17.5); White Blood Count 7.2 K/mm3 (4.8-10.8)
[2023-09-21 21:09] LABS: HCG Qualitative, Serum Negative (Negative)
[2023-09-21 21:17] LABS: Chloride 102 mmol/L (98-107); Sodium 137 mmol/L (136-145)
[2023-09-21 21:19] LABS: Alanine Aminotransferase 16 U/L (12-78); Blood Urea Nitrogen 17 mg/dl (7-17); Creatinine Clearance Estimated 96 mL/min (50-200); Estimated Glomerular Filt Rate 74 ml/min (>60); GFR (African American) 90 ML/MIN (>60)
[2023-09-21 21:20] LABS: Albumin Level 4.7 g/dl (3.5-5.0); Albumin/Globulin Ratio 1.6 (1.1-1.8); Alkaline Phosphatase 38 U/L (38-126); Aspartate Amino Transferase 34 U/L (14-36); Calcium 9.6 mg/dl (8.4-10.2); Carbon Dioxide 28 mmol/L (22.0-30.0); Globulin 2.9 g/dL (1.3-3.2); Glucose 90 mg/dl (74-100); Magnesium 1.9 mg/dl (1.6-2.3); Total Protein,Serum 7.6 g/dl (6.3-8.2)
[2023-09-21 21:30] VITALS: BP 137/79; PULSE 51; RESP 16; O2SAT 100
[2023-09-21 21:37] LABS: T4 (Thyroxine) 6.9 ug/dl (5.53-11.0)
[2023-09-21 21:51] LABS: Thyroid Stimulating Hormone 2.53 uIU/mL (0.465-4.68)
--- NOTE | 2023-09-21 21:53 | ECG_ITS ---
APPROVED REPORT Exam: Resting ECG HR:64 bpm ECG Measurements Heart Rate 64 AXES KS 168 P 54 QRSd 80 QRS 43 QT 402 T 49 QTc 412 Conclusion SINUS RHYTHM WITH OCCASIONAL ECTOPIC PREMATURE COMPLEXES BORDERLINE ECG Electronically signed by : LAILA HENNESSY, 09/22/2023 01:24:48
[2023-09-21 22:00] VITALS: BP 117/70; PULSE 51; RESP 15; O2SAT 100
[2023-09-21 22:30] VITALS: BP 123/73; PULSE 46; RESP 15; O2SAT 100
[2023-09-21 23:01] VITALS: BP 112/66; PULSE 45; RESP 13; O2SAT 100
[2023-09-21 23:42] VITALS: BP 116/78; PULSE 59; RESP 16; TEMP 36.6; O2SAT 98
--- NOTE | 2023-09-22 00:50 | ED_ITS ---
Discharge Plan Disposition Patient Disposition: Home, Self-Care Condition: Good Prescriptions Prescriptions: No Action cefdinir 300 mg capsule 300 mg PO BID Qty: 20 0RF Referrals Follow up/Referrals: Cherise Kaye PA [Primary Care Provider] - See instructions Nirmal Hein MD [Staff Physician] - See instructions Activity Restrictions/Add. Instructions Additional Instructions/Restrictions: You were evaluated in the emergency department today. Please follow-up closely with cardiology. Return to the emergency department for new or worsening symptoms. Clinical Impressions Clinical Impression: Palpitations, Bradycardia, sinus, Frequent PVCs Instructions Patient Instructions: Premature Ventricular Beats Discharge ED Provider: Parul Cavazos General Adult HPI General Chief complaint: Anxiety Stated complaint: Heart papitations Time Seen by Provider: 09/21/23 20:53 Mode of Arrival: Ambulatory Source of Information: Patient Limitations: No Limitations Description of Symptoms (Recalled from ER Triage Doc. by RN): Pt presents to ER with concerns of frequent heart palpitations (20 -30 per/hr) that are worse after standing. Pt had recent visit to PCP with labwork, told today k+ was 5.7 Pt denies any SOA, feels chest pressure no pain. Pt states she feels really anxious at this time. History of Present Illness HPI narrative: This patient is a 28-year-old female with a history of palpitations, sinus bradycardia, and previous evaluations for chest pains in the past presenting to the emergency department for evaluation with concern for frequent palpitations. She states that she can feel her heart flutter 20-30 times in an hour. It gets worse with standing. She saw her PCP and was told that her potassium was high in the past, so she should be evaluated to have her potassium rechecked, as this could cause dysrhythmias. She states that this has been making her feel very anxious. She denies any fevers, chills, cough, infectious symptoms, chest pain, shortness of breath, abdominal pain, vomiting, or other concerns. She just notes that the palpitations and heart fluttering are becoming much more frequent and persistent. Related Data Previous Rx's Medication Instructions Recorded cefdinir 300 mg capsule 300 mg PO BID #20 caps 05/05/23 Allergies Allergy/AdvReac Type Severity Reaction Status Date / Time azithromycin Allergy Verified 05/05/23 11:18 latex AdvReac Mild Verified 11/14/22 08:57 PFSH PFSH Disclaimer: The information contained in this section may have been updated after the patient was seen, as this information can be updated by other users. Medical History Bradycardia Dizziness Palpitations Dyspnea Chest pain Urinary tract infection Depression Surgical History History of tympanostomy tube placement History of section Social History Smoking Status: Never smoker alcohol intake: never current occupational status: other Travel in the last 8 weeks: None ROS Obtained: Yes All systems reviewed & no additional complaints except as documented Physical Exam General General appearance: alert and in no apparent distress Head Head exam: atraumatic and normocephalic Eye Eye exam: Present normal appearance, PERRL and EOMI ENT ENT exam: Present normal exam, normal oropharynx, mucous membranes moist and normal external ear exam Neck Neck exam: Present normal inspection, full ROM and trachea midline; Absent tenderness Chest Chest inspection: Present normal inspection and symmetric chest wall rise; Absent tenderness Respiratory Respiratory exam: Present normal lung sounds bilaterally; Absent respiratory distress, wheezes, stridor or accessory muscle use Cardiovascular Cardiovascular exam: Present bradycardia Abdominal Exam Abdominal exam: Present soft; Absent distention, tenderness or guarding Extremities Exam Extremities exam: Present normal inspection, full ROM and normal capillary refill; Absent tenderness or edema Back Exam Back exam: Present normal inspection and full ROM; Absent tenderness Neurological Exam Neurological exam: Present alert, oriented X3, CN II-XII intact and normal gait; Absent motor sensory deficit Psychiatric Psychiatric exam: Present normal affect and normal mood Skin Skin exam: Present warm and dry Medical Decision Making Medical Records Medical records reviewed: Yes I reviewed the patient's medical records. Tate Inquiry Pt receiving controlled substance: No Vital Signs: 09/21/23 20:06 09/21/23 21:30 09/21/23 22:00 Temperature 98.1 F Temperature Source Oral Pulse Rate 51 L 51 L Pulse Rate [Left] 52 L Respiratory Rate 16 16 15 Blood Pressure 137/79 117/70 Blood Pressure [Right Arm] 136/91 H Blood Pressure Mean 92 83 Blood Pressure Mean [Right Arm] 106 Blood Pressure Source Blood Pressure Source [Right Arm] Automatic Cuff Blood Pressure Position Blood Pressure Position [Right Arm] Sitting 02 Sat by Pulse Oximetry 100 100 100 Oxygen Delivery Method Room Air 09/21/23 22:30 09/21/23 23:01 09/21/23 23:42 Temperature 98 F Temperature Source Oral Pulse Rate 46 L 45 L 59 L Pulse Rate [Left] Respiratory Rate 15 13 16 Blood Pressure 123/73 112/66 116/78 Blood Pressure [Right Arm] Blood Pressure Mean 87 81 Blood Pressure Mean [Right Arm] Blood Pressure Source Automatic Cuff Blood Pressure Source [Right Arm] Blood Pressure Position Sitting Blood Pressure Position [Right Arm] 02 Sat by Pulse Oximetry 100 100 Oxygen Delivery Method Room Air Room Air Lab Data Lab results reviewed: Yes I reviewed the patient's lab results. Lab Results 09/21/23 20:20: WBC 7.2, RBC 4.61, Hgb 13.7, Hct 41.6, MCV 90.3, MCH 29.8, MCHC 33.0, RDW 14.4, Plt Count 238, MPV 7.8, Neut % (Auto) 56.4, Lymph % (Auto) 36.9, Alfalfa % (Auto) 4.4, Eos % (Auto) 1.4, Baso % (Auto) 0.9, Neut # (Auto) 4.1, Lymph # (Auto) 2.7, Alfalfa # (Auto) 0.3, Eos # (Auto) 0.1, Baso # (Auto) 0.1, Sodium 137, Potassium 4.0, Chloride 102, Carbon Dioxide 28, Anion Gap 11.0, BUN 17, Creatinine 0.90, Estimated Creat Clear 96, Estimated GFR 74, Est GFR ( Amer) 90, Glucose 90, Calcium 9.6, Magnesium 1.9, Total Bilirubin 1.0, AST 34, ALT 16, Alkaline Phosphatase 38, Total Protein 7.6, Albumin 4.7, Globulin 2.9, Albumin/Globulin Ratio 1.6, TSH 2.53, Thyroxine (T4) 6.9, Serum HCG, Qual Negative 09/21/23 20:20 09/21/23 20:20 Orders (Tests/Meds): ORDERS Category Date Time Status Complete Blood Count Auto Diff Stat Lab 09/21/23 20:20 Completed Comprehensive Metabolic Panel Stat Lab 09/21/23 20:20 Completed HCG Qualitative, Serum Stat Lab 05/24/24 20:20 Completed Magnesium Stat Lab 09/21/23 20:20 Completed T4 (Thyroxine) Stat Lab 09/21/23 20:20 Completed Thyroid Stimulating Hormone Stat Lab 09/21/23 20:20 Completed ECG Data Tracing #1: I reviewed this ECG and interpreted as documented below: Sinus bradycardia with a ventricular rate of [address] changes concerning for ischemia. Normal axis and intervals. ECG initial impression date: 09/22/23 ECG initial impression time: 20:18 Tracing #2: I reviewed this ECG and interpreted as documented below: Normal sinus rhythm with a ventricular rate of 64 bpm. 1 PVC noted. No acute ST changes concerning for ischemia. Normal axis and intervals. ECG initial impression date: 09/22/23 ECG initial impression time: 21:54 Medical Decision Narrative: In summary, this patient is a 28-year-old female presenting to the Emergency Department for evaluation of recurrent palpitations. Differential diagnoses considered include but are not limited to hypothyroidism, hyperthyroidism, potassium derangement, magnesium derangement, dysrhythmia. Ruling out the most morbid conditions drove assessment. I reviewed patient's past medical records and noted previous ECG with sinus bradycardia and eval for palpitations in the past. On exam, the patient is resting comfortably with reassuring vital signs on cardiac telemetry. Workup included CBC, CMP, TSH, T4, , magnesium, EKG. EKG x 2 obtained is reassuring. Patient did have a PVC noted on repeat EKG, but no sustained frequent PVCs, bigeminy, trigeminy, or any concerns like this. Labs are reassuring. Ultimately given reassuring workup and exam, I feel the patient is appropriate for discharge home with close follow-up with primary care as well as cardiology. I gave her instructions for this. Give her very strict return precautions and the patient was discharged after all questions were answered. Critical Care Critical Care Time Critical Care Time: No
== END 2023-09-21 23:46 | disposition home or self-care (01) ==
PROVIDERS: Emergency Provider Emergency Medicine; PCP Physician Assistant
DX: R00.2 Palpitations (principal); R00.1 Bradycardia, unspecified; I49.3 Ventricular premature depolarization
CPT/HCPCS: 80053; 83735; 84436; 84443; 84703; 85025; 93005; 99283

== ENCOUNTER 2023-09-26 07:58 | Outpatient (CLI) | payer BC, SELFPAY ==
--- NOTE | 2023-09-26 09:51 | CA_ITS ---
APPROVED REPORT EXAM: Limited 2D and color flow Echocardiogram Business Segment Manager: Luciat Montelongo RCS, RVS Ht: 5 ft 7 in Wt: 153lbs BSA: 1.80 BP: 128/88 mmHg Indications: Palpitations 2D Dimensions Left Atrium 3.48 cm M-Mode Dimensions RVDd 2.63 cm (0.9-2.6) LVDd 4.88 cm (3.5-5.7) Ao Diam 2.76 cm (2.0-3.7) LVDs 3.13 cm (3.5-5.7) IVSd 0.66 cm (0.6-1.1) PWd 0.75 cm (0.6-1.1) EF (Teich) 65.30% EPSs 0.60 cm FS 35.90% EDV (Teich) 111.70 mL ESV (Teich) 38.80 mL Other Information Study Quality: Fair Conclusion This is a limited study to evaluate for biventricular systolic size and function. Limited windows were obtained. The left ventricle is normal in size. There is normal LV wall thickness. No regional wall motion abnormalities are noted. LVEF is 55%. The right ventricle is mildly dilated. There is mild reduction in RV systolic function. There is no Doppler evidence of interatrial shunt. Mild TR is noted. In the setting of mild RV dysfunction and presence of palpitations, further evaluation with full TTE and bubble study are recommended to rule out interatrial shunt. Electronically signed by : Lisette Way MD 10/01/2023 12:10:11
[2023-09-26 10:33] LABS: Alanine Aminotransferase 13 U/L (12-78); Albumin Level 4.4 g/dl (3.5-5.0); Albumin/Globulin Ratio 1.7 (1.1-1.8); Alkaline Phosphatase 39 U/L (38-126); Anion Gap 11.4 mEq/L (5-15); Aspartate Amino Transferase 27 U/L (14-36); Bilirubin,Total 0.8 mg/dl (0.2-1.3); Blood Urea Nitrogen 16 mg/dl (7-17); Calcium 9.6 mg/dl (8.4-10.2); Carbon Dioxide 30 mmol/L (22.0-30.0); Chloride 102 mmol/L (98-107); Estimated Glomerular Filt Rate 85 ml/min (>60); GFR (African American) 103 ML/MIN (>60); Globulin 2.6 g/dL (1.3-3.2); Glucose 86 mg/dl (74-100); Potassium 5.4 mmoL/L (3.5-5.1); Sodium 138 mmol/L (136-145)
[2023-09-26 10:50] LABS: D-Dimer < 0.25 ug/mL (0.0-0.5)
[2023-09-26 10:58] LABS: Troponin I < 0.01 ng/ml (0.00-0.034)
== END 2023-09-26 23:59 | disposition home or self-care (01) ==
PROVIDERS: Physician Assistant; PCP Physician Assistant; Visit Provider Family Medicine
DX: R00.2 Palpitations (principal); R94.31 Abnormal electrocardiogram [ECG] [EKG]; E87.5 Hyperkalemia
CPT/HCPCS: 36415; 80053; 84484; 85378; 93225; 93227; 93308

== ENCOUNTER 2023-10-10 14:34 | Outpatient (CLI) | payer BC, SELFPAY ==
--- NOTE | 2023-10-10 14:34 | CA_ITS ---
APPROVED REPORT EXAM: Comprehensive 2D, Doppler, and color-flow Echocardiogram It Trainer: Chantal Lucas CRT Ht: 5 ft 7 in Wt: 153lbs BSA: 1.80 BP: 128/88 mmHg Indications: Palpitations Echo Enhancing Agent Indication: Rule out Shunt Agent(s) / Amount(s) Used: Agitated Saline 5 cc Comments: B/S ORDERED 2D Dimensions LA Volume 21.80 mL LA Volume Index 11.80 mL/m2 (M/F) 16-34 M-Mode Dimensions RVDd 2.80 cm (0.9-2.6) LA Diam 2.89 cm (1.9-4.0) LVDd 4.37 cm (3.5-5.7) LVDs 3.13 cm (3.5-5.7) IVSd 1.02 cm (0.6-1.1) PWd 0.98 cm (0.6-1.1) EF (Teich) 55.00% FS 28.40% EDV (Teich) 86.30 mL TAPSE 2.01 (<1.7) ESV (Teich) 38.80 mL LV Diastology MED A' 6.00 cm/s LAT A' 8.50 cm/s Aortic Valve AO Peak GR. 4.90 mmHg Pulmonary Valve PV Peak Velocity 149.0 (50-150 cm/s) Tricuspid Valve TR P. Velocity 210.00 cm/s RAP Estimate 10.00 mmHg RVSP 27.60 mmHg Left Ventricle The left ventricle is normal size. The left ventricular systolic function is normal. The left ventricular ejection fraction is within the normal range. There is normal left ventricular wall thickness. There is normal LV segmental wall motion. The left ventricular diastolic function is normal. LVEF is 55%. Right Ventricle The right ventricle is normal size. The right ventricular systolic function is normal. Atria The left atrium size is normal. The right atrium size is normal. There is no Doppler evidence of interatrial shunt. Saline bubble contrast intravenous injection does not demonstrate PFO. Aortic Valve The aortic valve is normal in structure. The aortic valve is trileaflet. There is no aortic valvular stenosis. No aortic regurgitation is present. Mitral Valve The mitral valve is normal in structure. No evidence of mitral valve stenosis. Trace mitral valve regurgitation noted. Tricuspid Valve The tricuspid valve leaflets are thin and pliable. Trace tricuspid regurgitation. There is insufficient TR jet to estimate RVSP. Pulmonic Valve The pulmonary valve is normal in structure. Trace pulmonic regurgitation. Great Vessels The aortic root is normal in size. The ascending aorta is normal in size. IVC is normal in size and collapses >50% with inspiration. Pericardium There is no pericardial effusion. Other Information Study Quality: Adequate Conclusion Normal biventricular size and function. No significant valvular stenosis or regurgitation. There is no Doppler evidence of interatrial shunt. Saline bubble contrast intravenous injection does not demonstrate PFO. Electronically signed by : Lisette Way MD 10/14/2023 17:35:40
== END 2023-10-10 23:59 | disposition home or self-care (01) ==
LOC: RT 14:34
PROVIDERS: PCP Physician Assistant; Visit Provider Physician Assistant
DX: I51.7 Cardiomegaly (principal); R93.1 Abnormal findings on diagnostic imaging of heart and coronary circulation; R94.31 Abnormal electrocardiogram [ECG] [EKG]; R00.1 Bradycardia, unspecified; R42 Dizziness and giddiness; R00.2 Palpitations; R06.09 Other forms of dyspnea; R07.9 Chest pain, unspecified; I49.3 Ventricular premature depolarization
CPT/HCPCS: 93306

== ENCOUNTER 2023-10-18 10:14 | Outpatient (CLI) | payer BC, SELFPAY ==
--- NOTE | 2023-10-18 10:15 | NM_ITS ---
FINAL REPORT CLINICAL HISTORY: abnl echo/rv dilation 11:00 am 34.4 mci DTPA inhaled 11:25 am 8.04 mci Maa injected into lt ant cxr done today COMPARISON: None FINDINGS: NUCLEAR MEDICINE VENTILATION AND PERFUSION IMAGING TECHNIQUE: V/Q scan is performed utilizing 34.4 mCi technetium 99 M DTPA aerosol and IV administration of 8.04 mCi technetium 99 M MAA. Images were obtained in AP, PA, lateral, and oblique projections. FINDINGS There is no evidence of segmental or subsegmental mismatch perfusion defects. IMPRESSION: Low probability for pulmonary embolus. Reviewed, Interpreted and Dictated by Heath Mann MD Transcribed by Louisa Juan Authenticated and [facility]
[2023-10-18] MEDS: ISOTOPE DTPA(AEROSOL);1 DOSE (UP TO 75 MCI) IV (11:00)
--- NOTE | 2023-10-18 11:34 | XR_ITS ---
FINAL REPORT CLINICAL HISTORY: SOA, RV enlargement COMPARISON: 05/03/2022 FINDINGS: 2 views of the chest were obtained . The heart is normal in size. The mediastinum is within normal limits. The lungs are clear. There is no pneumothorax. Osseous structures are unremarkable. IMPRESSION: No acute cardiopulmonary process. Reviewed, Interpreted and Dictated by Heath Mann MD Transcribed by Jennifer Vásquez Authenticated and [facility]
[2023-10-18] MEDS: ISOTOPE TC MAA;1 DOE (UP TO 45 MCI) 1 DOSE IV (12:14)
[2023-10-18] MEDS: SODIUM CHLORIDE 0.9% 10ML SYR (RAD ONLY) 10 ML IV (12:14)
== END 2023-10-18 23:59 | disposition home or self-care (01) ==
LOC: RAD 10:15
PROVIDERS: PCP Physician Assistant; Visit Provider Physician Assistant
DX: R00.2 Palpitations (principal); I49.3 Ventricular premature depolarization; R93.1 Abnormal findings on diagnostic imaging of heart and coronary circulation; R94.31 Abnormal electrocardiogram [ECG] [EKG]; R06.09 Other forms of dyspnea; R07.9 Chest pain, unspecified
CPT/HCPCS: 71046; 78582; A9540; A9567

== ENCOUNTER 2023-12-04 06:33 | Day surgery (SDC) | payer BC, SELFPAY ==
[2023-11-30 14:05] VITALS: BMI 23.3
[2023-12-04] MEDS: LACTATED RINGERS 1000ML 1,000 ML 100 ML IV (06:47)
[2023-12-04 06:49] VITALS: BP 115/80; PULSE 48; RESP 18; TEMP 36.3; O2SAT 100
[2023-12-04 06:50] LABS: Urine Pregnancy, HCG Qual. Negative (Negative)
--- NOTE | 2023-12-04 07:07 | HMH.SCOPE ---
Procedure: Date: 12/04/23 Patient Date of :: 1995 Procedure Performed:: Esophagogastroduodenoscopy with biopsy Indications:: Heartburn Gastroesophageal reflux Heart palpitations Performing Provider:: Iván Stevens MD Referring Provider:: . Sedation:: Monitored anesthesia care Procedure:: After informed consent was obtained the patient was taken to the endoscopy suite. Sedation ensued after the patient was transferred to the left lateral decubitus position. Pulse, blood pressure, and oxygen saturation were monitored throughout the procedure. The endoscope was advanced beyond the duodenal bulb. Retroflexion within the gastric lumen was accomplished. The gastroscope was carefully removed and the patient was transferred to recovery in stable condition. Please see findings and specimens below for detail. Findings:: Gastroesophageal junction at 38 cm Small sliding hiatal hernia Minimal gastritis Specimens:: Antral biopsy Recommendations:: Follow-up pathology Consider UGI/SBFT Consider gastric emptying scan Consider gastroenterology evaluation Complications:: No immediate Estimated blood obtained (mL): 1 Colonoscopy Component Colonoscopy Component Was a colonoscopy performed during today's procedure?: No
--- NOTE | 2023-12-04 07:13 | EXP.ANES.CKL ---
[facility] Disclaimer: The information contained in this section may have been updated after the patient was seen, as this information can be updated by other users. Medical History Right ventricular dilation Abnormal echocardiography Abnormal electrocardiogram [ECG] [EKG] Bradycardia Dizziness Palpitations Dyspnea Chest pain Urinary tract infection Depression Surgical History History of removal of cyst History of tympanostomy tube placement History of section Family History Grandfather No problems noted. Other Family history of cancer Social History Smoking Status: Never smoker alcohol intake: never substance use type: denies use current occupational status: other Travel in the last 8 weeks: None [facility] Anesthesia Checklist Patient Identification Patient Identification: Arm Band and Verbal (Name & ) Structural Data Admitted From: Home Planned Operative Procedure/s: EGD Consent for Planned Operative Procedure(s) Verified: Yes Verified Documents: Surgical Consent and History and Physical NPO Status Verified Time NPO: 00:00 Chart Verification Results Verified: CBC and HCG Additional verifications Anesthesia Reactions: Yes (nauseous) Hx Blood Transfusions: No Airway Assessment Mallampati Score:: Class I C-Spine Mobility Assessed: Yes TMJ Mobility Assessed: Yes Dentition: Good Dentition Neurological Assessment Level of Consciousness: Awake Hx Seizures: No Numbness or tingling in extremities: No Anesthesia Plan Anesthesia Risk discussed: Yes Anesthesia Plan: Verified ASA Class: II Anesthesia Type: MAC
[2023-12-04 07:18] VITALS: O2SAT 100
[2023-12-04 07:30] VITALS: BP 109/60; PULSE 58; RESP 18; TEMP 36.7; O2SAT 98
[2023-12-04 07:40] VITALS: BP 105/65; PULSE 47; RESP 18; O2SAT 99
[2023-12-04 07:50] VITALS: BP 108/70; PULSE 55; RESP 18; O2SAT 100
[2023-12-04 08:01] VITALS: BP 95/43; PULSE 44; RESP 18; O2SAT 100
== END 2023-12-04 08:05 | disposition home or self-care (01) ==
PROVIDERS: PCP Physician Assistant; Visit Provider Surgery
PROC: 0DJ08ZZ Inspection of Upper Intestinal Tract, Via Natural or Artificial Opening Endoscopic (ICD-10-PCS; CPT 43235; principal; 2023-12-04 07:30)
DX: R00.2 Palpitations (principal); K21.9 Gastro-esophageal reflux disease without esophagitis; K44.9 Diaphragmatic hernia without obstruction or gangrene; R12 Heartburn; K29.70 Gastritis, unspecified, without bleeding
CPT/HCPCS: 43239; 81025; J7120

== ENCOUNTER 2023-12-17 09:41 | Outpatient (CLI) | payer BC, SELFPAY ==
--- NOTE | 2023-12-17 09:42 | NM_ITS ---
FINAL REPORT TECHNIQUE: Sequential anterior images were obtained after the ingestion of 2 whole eggs, toast, and water radiolabeled with 0.52 mCi technetium 99M sulfur colloid. CLINICAL HISTORY: nausea 10:10AM 0.52 MCI TC SULFUR COLLOID INJ INTO 2 WHOLE EGGS, TOAST AND WATER COMPARISON: None FINDINGS: GASTRIC EMPTYING SCAN Static images show normal emptying of the stomach into the small bowel. Based on the time activity curve, the estimated half-emptying time is 111 minutes which is mildly prolonged. IMPRESSION: Mildly prolonged gastric emptying study. Reviewed, Interpreted and Dictated by Edmund Cottrell MD Transcribed by Elizabeth Borrero Authenticated and [facility]
[2023-12-17] MEDS: TC99M SULF.COLLOID;1 DOSE (UP TO 20 MCI) IV (10:29)
== END 2023-12-17 23:59 | disposition home or self-care (01) ==
LOC: RAD 09:42
PROVIDERS: PCP Physician Assistant; Visit Provider Surgery
DX: R11.0 Nausea (principal); Z87.19 Personal history of other diseases of the digestive system
CPT/HCPCS: 78264; A9541

== ENCOUNTER 2024-12-17 11:02 | Outpatient (CLI) | payer BC, SELFPAY ==
--- OUTSIDE RECORDS SUMMARY | 2024-09-15 09:15 | XMS_ITS ---
Author Organization [facility] Address [address] [place] [address] Care Team Providers Care Graphic Arts Technician Name Role Phone SelinaSarah Unavailable [phone] Archana Bergman Unavailable [phone] REASON FOR VISIT Annual Encounters Encounter Location Date Provider Diagnosis [facility] [address] [place] [address] 09/15/2024 Archana Bergman Plan Of Treatment Next Appt Details Provider Name:Archana Bergman , 01/13/2025 09:45:00 AM, [address], [place], [address], Progress Notes * Daphne SHEPHERD BDOB:1995 (29 yo F)Acc No.[id number]:09/15/2024 Progress Note Patient: Velia ibrahima Daphne Hager Provider: Simone Bergman NP :1995 A ge:29 Y S ex:Female Date:09/15/2024 Address[address] [id number] Subjective: * Chief Complaints: * A nnual * Electronic signature of Norma Bergman NP on 12/17/2024 at 11:17 AM EDT Sign off status: Pending Visit Status: R /S (Rescheduled) * Provider: Simone Bergman NP Date: 0 09/15/2024 Generated for Printi ng/Faxing/eTransmitting on: 0 12/17/2024 11:17 AM EDT
--- OUTSIDE RECORDS SUMMARY | 2024-10-29 07:00 | XMS_ITS ---
Author Organization [facility] Address [address] [place] [address] Care Team Providers Care Stitcher Around Name Role Phone Selina Sarah Unavailable [phone] Archana Bergman Unavailable [phone] REASON FOR VISIT Annual Encounters Encounter Location Date Provider Diagnosis [facility] [address] [place] [address] 10/29/2024 Archana Bergman Plan Of Treatment Next Appt Details Provider Name:Archana Bergman , 01/13/2025 09:45:00 AM, [address], [place], [address], Progress Notes * Daphne SHEPHERD BDOB:1995 (29 yo F)Acc No.[id number]:10/29/2024 Progress Note Patient: Velia ibrahima Daphne Hager Provider: Simone Bergman NP :1995 A ge:29 Y S ex:Female Date:10/29/2024 Address[address] [id number] Subjective: * Chief Complaints: * A nnual * Electronic signature of Norma Bergman NP on 12/17/2024 at 11:17 AM EDT Sign off status: Pending Visit Status: R /S (Rescheduled) * Provider: Simone Bergman NP Date: 10/29/2024 Generated for Printi ng/Faxing/eTransmitting on: 12/17/2024 11:17 AM EDT
--- NOTE | 2024-12-17 11:06 | XR_ITS ---
FINAL REPORT CLINICAL HISTORY: PAIN IN JOINT RT PELVIC REGION AND THIGH. PAIN IN ANTERIOR HIP FINDINGS: Right hip Three views were obtained. There is no fracture or dislocation. The joint spaces appear normal. No soft tissue abnormality is identified. IMPRESSION: No acute process. Reviewed, Interpreted and Dictated by Edmund Cottrell MD Transcribed by Radha Ham Authenticated and [facility]
--- OUTSIDE RECORDS SUMMARY | 2024-12-17 11:17 | XMS_ITS | Clinical Summary ---
Author Organization [facility] Address [address] [place] [address] Care Team Providers Care Gis Scientist Name Role Phone Jamshid Sands MD Primary Care Provider [phone] Allergies Active Allergy Reactions Criticality Noted Date Comments Adhesive Tape Hives 09/01/2018 SURGICAL TAPE AND ADHESIVE GLUES ON EKG TABS CAUSES HIVES AND REDNESS- PAPER TAPE OKAY Latex Rash Low 11/13/2016 Other Confusion,Palpitations High 09/01/2018 duramorph Medications No known medications Active Problems Problem Noted Date Diagnosed Date Bradycardia 03/12/2023 Dizziness 03/12/2023 Dyspnea, unspecified 03/12/2023 Exposure to COVID-19 virus 03/12/2023 Palpitations 03/12/2023 Resolved Problems Problem Noted Date Diagnosed Date Resolved Date 39 weeks gestation of 09/02/2018 09/02/2018 Face presentation of fetus 11/14/2016 0 09/02/2018 delivery delivered 11/13/2016 09/02/2018 Family History Medical History Relation Name Comments Hypertension Father Melanoma Maternal Grandfather Hypertension Maternal Grandmother Gisele Celestine Stroke Maternal Grandmother Gisele Celestine Seizures Maternal Uncle Babar Celestine Migraines Mother Mee [place] Dementia Paternal Grandfather Justin Techgricelda Diabetes Paternal Grandfather Justin Techgricelda Hypertension Paternal Grandfather Justin [place] Stroke Paternal Grandfather Justin [place] Relation Name Status Comments Father Maternal Grandfather Maternal Grandmother Gisele Celestine Maternal Uncle Babar Celestine Mother Mee [place]au Paternal Grandfather Justin [place] Social History Tobacco Use Types Packs/Day Years Used Date Smoking Tobacco: Never Passive Smoke Exposure: Never Smokeless Tobacco: Never Tobacco Cessation:Counseling Given: No Alcohol Use Standard Drinks/Week Comments Yes 0 (1 standard drink = 0.6 oz pur e alcohol) Very occasional [place] Depression Scale Answer Date Recorded Retired [place] Depression Score 1 09/03/2018 Retired EPD Scale: Thought of Harming Self Unrec ognized value 09/03/2018 Abuse Screen Answer Date Recorded Unsafe at Home or Work/School Not on file Feels Threatened by Someone? Not on file 12/2022 Does Anyone Keep You from Co ntacting Others or Doint Things Outside the Home? Not on file 02/05/2023 Physical Sign of Abuse Present Not on file 1 Housing Stability Answer Date Recorded Current Living Arrangements Not on file 12/2022 Potentially Unsafe Housing Conditions Not on isma e 02/05/2023 Family and Community Support Answer Tad e Recorded Help with Day-to-Day Activities Not on file 02/05/2023 Lonely or Isolated Not on file 02/05/2023 Employment Answer Date Recorded Do you want help finding or keeping work or a mendez b? Not on file 02/05/2023 Disabilities Answer Date Recorded Concentrating, Remembering, or Making Decisions Difficulty Not on file 02/05/2023 Doing Errands Independently Difficulty Not on fi le 02/05/2023 Education Answer Date Recorded Help with school or training? Not on file Preferred Language Not on file 02/05/2023 Comments Unknown Sex and Gender Information Value Date Recorded Sex Assigned at Not on file Legal Sex Female 10:43 AM EDT Gender Identity Not on file Sexual Orientation Not on file Last Filed Vital Signs Vital Sign Reading Time Taken Comments Blood Pressure 100/58 03/12/2023 9:33 AM EST Pulse 52 03/12/2023 9:33 AM EST Temperature 36.8 C (98.3 F) 09/05/2018 7:00 AM EDT Respiratory Rate 18 09/05/2018 7:00 AM EDT Oxygen Saturation 99% 03/12/2023 9:33 AM EST Inhaled Oxygen Concentration - - Weight 63.5 kg (140 lb) 03/12/2023 9:33 AM EST Height 165.1 cm (5' 5 ) 03/12/2023 9:33 AM EST Body Mass Index 23.3 03/12/2023 9:33 AM EST Plan of Treatment Health Maintenance Due Date Last Done Comments Annual Gynecologic Pelvic an d Breast Exam 1995 ANNUAL PHYSICAL 11/13/2016 COVID-19 Vaccine (1 - 2023-2 5 season) 2023 INFLUENZA VACCINE 01/28/2025 TDAP/TD VACCINES (2 - Td or Tdap) 09/20/2026 09/20/2016 HEPATITIS C SCREENING Completed 02/08/2018 , 11/13/2016, 03/30/2016 Pneumococcal Vaccine 0-49 Aged Out No longer eligible based on patient's age to complete this topic Procedures Procedure Name Priority Date/Time Associated Diagnosis Comments HEPATITIS C ANTIBODY Routine 02/08/2018 3:09 PM EDT 9 weeks gestation of care, subsequent , first trimester from Last 3 Months or Most Recently Relevant to Health Maintenance Results * Hepatitis C Antibody (02/08/2018 3:09 PM EDT) Hepatitis C Ab Non-Reacti ve Non-Reacti ve 02/08/2018 5:05 PM EDT [facility] Blood Venipuncture / Unknown 02/08/2018 3:09 PM EDT 02/08/2018 3:09 PM EDT Ginna Mark [facility] BLOOD ORDERABLES Final Re sult [facility]
[address] [place] [address], from Last 3 Months or Most Recently Relevant to Health Maintenance Insurance PPO Advance Directives * CPR (Attempt to Resuscitate) (Latest Code Status on File) Date Activated Date Inactivated Comments 09/02/2018 1:55 PM 09/05/2018 1:42 PM Question Answer Comments Code Status (Patient has no pulse and is not breathing): CPR (Attempt to Resuscitate) Medical Interventions (Patie nt has pulse or is breathing): Full * CPR (Attempt to Resuscitate) Date Activated Date Inactivated Comments 09/02/2018 9:53 AM 09/02/2018 1:55 PM Question Answer Comments Code Status (Patient has no pulse and is not breathing): CPR (Attempt to Resuscitate) Medical Interventions (Patie nt has pulse or is breathing): Full * Full Code Date Activated Date Inactivated Comments 11/14/2016 8:00 AM 11/17/2016 6:22 PM * Full Code Date Activated Date Inactivated Comments 11/13/2016 6:36 PM 11/14/2016 8:00 AM Care Teams Gis Scientist Relationship Specialty Start Date End Date Jamshid Sands MD [address] [facility] [address] [facility] [place] [address] [place] [address] PCP - General Family Medicine 03/12/23
--- OUTSIDE RECORDS SUMMARY | 2024-12-17 11:17 | XMS_ITS | Clinical Summary ---
Author Organization Healthcare Address [address] [place] [address] Care Team Providers Care Program Director Scouting Name Role Phone Cherise Kaye Primary Care Provider [phone] Social History Tobacco Use Types Packs/Day Years Used Date Smoking Tobacco: Never Assessed Comments Unknown Sex and Gender Information Value Date Recorded Sex Assigned at Not on file Legal Sex Female 10:11 AM EDT Gender Identity Not on file Sexual Orientation Not on file Plan of Treatment Health Maintenance Due Date Last Done Comments [facility]-Depression Screening 1995 [facility]-HIV Screening 1995 [facility]-Hepatitis C Screening 1995 [facility]-Infant/Child/Adol SDOH Screenings 1995 [facility]-Varicella Vaccines (1 of 2 - 13+ 2-dose series) 2007 [facility]- SDOH Screenings 01/28/2012 [facility]-Adult SDOH Screenings 01/28/2012 [facility]-Hepatitis B Vaccines (1 of 3 - 19+ 3-dose series) 2013 [facility]-Pap Smear 2015 HPV Vaccines (1 - 3-dose SCD M series) 2021 [id number] Vaccine (1 - 20 24-25 season) 2023 [facility]-Cervical Cancer Screening 01/28/2024 [facility]-HPV/Cotest 01/28/2024 [facility]-Influenza Vaccine (#1) 2024 [facility]-DTaP,Tdap,and Td Vaccine s (2 - Td or Tdap) 09/20/2026 09/20/2016 [facility]-Zoster Vaccines (1 of 2) 01/28/2044 [facility]-HIB Vaccines Aged Out No longer e ligible based on patient's age to complete this topic [facility]-Hepatitis A Vaccines Aged Out No longer eligible based on patient's age to complete this topic [facility]-IPV Vaccines Aged Out No longer e ligible based on patient's age to complete this topic [facility]-Pneumococcal Vaccine: Pediatrics (0 to 5 Years) and At-Risk Patients (6 to 49 Years) Aged Out No long er eligible based on patient's age to complete this topic [facility]-Rotavirus Vaccines Aged Out No lo nger eligible based on patient's age to complete this topic Insurance ANTH Care Teams Program Director Scouting Relationship Specialty Start Date End Date Cherise Kaye PA [address] [place] [address] PCP - General 12/19/23
--- OUTSIDE RECORDS SUMMARY | 2024-12-17 11:17 | XMS_ITS | Patient Health Record ---
Author Organization [facility] Address [address] [facility] [address] [place] [address] Care Team Providers Care Small Business Representative Name Role Phone ValerieSarah stokes Unavailable [phone] Archana Bergman Unavailable [phone] Reason For Referral No Information Problems Problem Type SNOMED Code ICD Code Onset Dates Problem Status W/U Status Risk Notes Problem Third trimester (66327749) Supervision of other normal , third trimester (Z34.83) 017 Active confirmed Supervision of other normal , third trimester Problem Third trimester (86771245) Supervision of other normal , third trimester (Z34.83) 017 Active confirmed Supervision of other normal , third trimester Problem Third trimester (55301017) Supervision of other normal , third trimester (Z34.83) 017 Active confirmed Supervision of other normal , third trimester Problem Third trimester (37210900) Supervision of other normal , third trimester (Z34.83) 017 Active confirmed Supervision of other normal , third trimester Problem Third trimester (95607161) Supervision of other normal , third trimester (Z34.83) 017 Active confirmed Supervision of other normal , third trimester Problem Third trimester (25298543) Supervision of other normal , third trimester (Z34.83) 017 Active confirmed Supervision of other normal , third trimester Problem Third trimester (78013271) Supervision of other normal , third trimester (Z34.83) 017 Active confirmed Supervision of other normal , third trimester Problem Third trimester (34242341) Supervision of other normal , third trimester (Z34.83) 017 Active confirmed Supervision of other normal , third trimester Problem Second trimester (08731572) Supervision of other normal , second trimester (Z34.82) 017 Active confirmed Supervision of other normal , second trimester Problem Second trimester (61204002) Supervision of other normal , second trimester (Z34.82) 017 Active confirmed Supervision of other normal , second trimester Problem Polycystic bilateral ovaries (disorder) (876293445) Bilateral polycystic ovarian syndrome (E28.2) 016 Active confirmed PCOS Problem First trimester (22903475) Supervision of other normal , first trimester (Z34.81) 016 Active confirmed Supervision of other normal , first trimester Problem Secondary dysmenorrhea (36112662) Secondary dysmenorrhea (N94.5) 016 Active confirmed Secondary dysmenorrhea Problem Gestation period, 13 weeks (40169322) 13 weeks gestation of (Z3A.13) 018 Active confirmed 13 weeks gestation of Problem Gestation period, 28 weeks (11474767) 28 weeks gestation of (Z3A.28) 017 Active confirmed 28 weeks gestation of Problem Gynecological examination normal (47906018117067 4) Cervical smear, as part of routine gynecological examination (Z01.419) 017 Active confirmed Annual without abnormal findings Problem Gynecological examination normal (16283128760836 4) Cervical smear, as part of routine gynecological examination (Z01.419) 016 Active confirmed Annual without abnormal findings Problem Admission for routine ultrasound (Z36.89) 019 Active confirmed Encounter for other specified screening Problem History and physical examination, follow-up (462521747) *Follow-up for Non-Malignant conditions (code also - acquired absence of organ (Z90.-) and identify personal hx malignant neoplasm (Z85.-)) (Z09) 017 Active confirmed Postoperative examination Problem History and physical examination, follow-up (763293798) *Follow-up for Non-Malignant conditions (code also - acquired absence of organ (Z90.-) and identify personal hx malignant neoplasm (Z85.-)) (Z09) 019 Active confirmed Postoperative examination Plan Of Treatment Next Appt Details Provider Name:Archana Bergman , 01/13/2025 09:45:00 AM, [address] [facility] [address], [place], [address], Insurance Providers Payer Name Payer Address Payer Phone Subscriber Number Group Number Insured Name Patient Relationship to Insured Coverage Start Date Coverage End Date [employer] PPO [address] [place] [id number] Daphne Stewart Self - patient is the insured Medical (General) History Medical History History ICD Code MENSTR FLOW: Heavy A Routine ov cysts PP anxiety Depression PCOS IBUPROFEN 600 MG ORAL TABLET, ORAL VITAMIN DICLOXACILLIN SODIUM 500 MG ORAL CAPSULE , ORAL N94.1 DYSPAREUNIA Surgical History Surgery Date(Month/Year) sebacious and bakers cysts r emoved from behind kneex2, wrist, and behind ear, c/s x2
== END 2024-12-17 23:59 | disposition home or self-care (01) ==
LOC: RAD 11:03
PROVIDERS: PCP Physician Assistant; Visit Provider Physician Assistant
DX: M25.551 Pain in right hip (principal)
CPT/HCPCS: 73502